=== PATIENT | female | born 1945 | race Caucasian/White ===

== ENCOUNTER → 2019-03-25 | Outpatient (CLI) | payer MEDICARE ==
--- NOTE | 2019-03-25 13:03 | US ---
EXAMINATION TYPE: US venous doppler duplex LE RT DATE OF EXAM: 03/25/2019 8:04 AM COMPARISON: NONE CLINICAL HISTORY: R60.0 Edema. Right ankle swelling and redness since change of blood pressure medica tion per patient. SIDE PERFORMED: Right TECHNIQUE: The lower extremity deep venous system is examined utilizing real time linear array sonog meryl with graded compression, doppler sonography and color-flow sonography. VESSELS IMAGED: Common Femoral Vein Deep Femoral Vein Greater Saphenous Vein * Femoral Vein Popliteal Vein Small Saphenous Vein * Proximal Calf Veins (* superficial vessels) Right Leg: Negative for DVT IMPRESSION: No evidence for DVT.
== END | disposition home or self-care (01) ==
LOC: RADUSWWP 08:02
PROVIDERS: ATTEND Internal Medicine
DX: R60.0 Localized edema (principal)

== ENCOUNTER → 2020-04-23 | Outpatient (CLI) | payer MEDICARE ==
--- NOTE | 2020-04-23 10:58 | US ---
EXAMINATION TYPE: US kidneys/renal and bladder DATE OF EXAM: 04/23/2020 COMPARISON: NONE CLINICAL HISTORY: N20.0 Calculus of kidney. Elevated creatinine, history of kidney stones. EXAM MEASUREMENTS: Right Kidney: 12.9 x 5.6 x 4.9 cm Left Kidney: 13.1 x 5.6 x 4.4 cm Right Kidney: multiple cysts with largest measuring 1.9 x 1.8 x 1.9cm inferior pole Left Kidney: 6.7 x 5.9 x 6.4cm cyst superior pole Bladder: wnl Bilateral Jets seen: no IMPRESSION: 1. Bilateral renal simple appearing cysts with no hydronephrosis or nephrolithiasis.
== END | disposition home or self-care (01) ==
LOC: RADUSWWP 09:56
PROVIDERS: ATTEND Internal Medicine
DX: N28.1 Cyst of kidney, acquired (principal)
CPT/HCPCS: 76770

== ENCOUNTER → 2021-03-16 | Outpatient (CLI) | payer MEDICARE ==
--- NOTE | 2021-03-17 09:28 | P.ARTDOP ---
Arterial Doppler LOWER EXTREMITY ARTERIAL DOPPLER: DATE OF SERVICE: 03/16/2021 Reason for study: Left hip pain with exercise. Doppler waveforms: Atypical throughout on the right. Atypical left femoral and popliteal and dorsalis pedis. Posterior tibial and digital are monophasic. Pulse volume recording: []. Pressure gradients: Mild gradient above the low thigh on the right and significant gradient above the low thigh on the left.. Ankle-brachial indices: 0.71 on the right and 0.29 on the left. Toe brachial indices: 0.41 on the right, 0.18 on the left Impression: Moderate right iliofemoral disease. Severe left iliofemoral disease. Recommend vascular specialty consultation..
== END | disposition home or self-care (01) ==
LOC: RADUSWWP 06:53
PROVIDERS: ATTEND Internal Medicine
DX: I73.9 Peripheral vascular disease, unspecified (principal)
CPT/HCPCS: 93923

== ENCOUNTER → 2021-05-11 | Outpatient (CLI) | payer MEDICARE ==
[2021-05-11 14:04] LABS: Basophils # (A) 0.1 k/uL (0-0.2); Basophils % (A) 1 %; Eosinophils # (A) 0.3 k/uL (0-0.7); Eosinophils % (A) 2 %; HCT 49.7 % (34.0-46.0); HGB 16.5 gm/dL (11.4-16.0); Lymphocytes # (A) 3.7 k/uL (1.0-4.8); Lymphocytes % (A) 28 %; MCH 32.8 pg (25.0-35.0); MCHC 33.2 g/dL (31.0-37.0); MCV 98.7 fL (80.0-100.0); Mean Platelet Volume 7.5; Monocytes # (A) 0.9 k/uL (0-1.0); Monocytes % (A) 7 %; Neutrophils % (A) 61 %; Platelet Count 283 k/uL (150-450); RBC 5.03 m/uL (3.80-5.40); RDW 12.9 % (11.5-15.5); WBC 13.2 k/uL (3.8-10.6)
[2021-05-11 14:27] LABS: African American GFR (CKD) >90 (>60 ml/min/1.73 sqM); Anion Gap 6 mmol/L; Blood Urea Nitrogen 20 mg/dL (7-17); Carbon Dioxide 26 mmol/L (22-30); Chloride 109 mmol/L (98-107); Non-African American GFR(CKD) 89 (>60 ml/min/1.73 sqM); Potassium 4.9 mmol/L (3.5-5.1); Sodium 141 mmol/L (137-145)
== END | disposition home or self-care (01) ==
LOC: LABPAT 11:24
PROVIDERS: ATTEND Surgery
DX: Z01.812 Encounter for preprocedural laboratory examination (principal); I74.5 Embolism and thrombosis of iliac artery; I74.3 Embolism and thrombosis of arteries of the lower extremities
CPT/HCPCS: 36415; 80051; 82565; 84520; 85025

== ENCOUNTER 2021-05-14 08:23 | Day surgery (SDC) | payer MEDICARE ==
[2021-05-07 13:41] VITALS: BMI 29.2
[~2021-05-14 08:23] MED LIST: ALPRAZolam 0.25 MG TAB PO PRN; ALPRAZolam 0.5 MG TAB PO PRN; ASPIRIN 325 MG TAB PO PRN; HEPARIN SODIUM,PORCINE 10,000 UNIT in SODIUM CHLORIDE 0.9% 1,000 ML IRRIGATION PRN; HEPARIN SODIUM,PORCINE 2,500 UNIT in SODIUM CHLORIDE 0.9% 250 ML IRRIGATION PRN; SODIUM CHLORIDE 0.9% 1,000 ML in EMPTY BAG 1 BAG IV ONE; ZOLPIDEM 5 MG TAB PO PRN
[2021-05-14 08:50] LABS: Glucose,Whole Blood 151 mg/dL (75-99)
[2021-05-14 08:51] VITALS: TEMP 98.3
[2021-05-14 09:13] LABS: Basophils # (A) 0.1 k/uL (0-0.2); Basophils % (A) 1 %; Eosinophils # (A) 0.3 k/uL (0-0.7); Eosinophils % (A) 2 %; HCT 51.3 % (34.0-46.0); HGB 16.7 gm/dL (11.4-16.0); Lymphocytes # (A) 2.8 k/uL (1.0-4.8); Lymphocytes % (A) 21 %; MCH 32.1 pg (25.0-35.0); MCHC 32.6 g/dL (31.0-37.0); MCV 98.5 fL (80.0-100.0); Mean Platelet Volume 7.4; Monocytes # (A) 0.8 k/uL (0-1.0); Monocytes % (A) 6 %; Neutrophils % (A) 68 %; Platelet Count 350 k/uL (150-450); RDW 13.5 % (11.5-15.5); WBC 13.3 k/uL (3.8-10.6)
[2021-05-14 09:53] LABS: African American GFR (CKD) >90 (>60 ml/min/1.73 sqM); Anion Gap 10 mmol/L; Blood Urea Nitrogen 18 mg/dL (7-17); Calcium 9.5 mg/dL (8.4-10.2); Carbon Dioxide 24 mmol/L (22-30); Chloride 107 mmol/L (98-107); Glucose 170 mg/dL (74-99); Non-African American GFR(CKD) >90 (>60 ml/min/1.73 sqM); Potassium 3.9 mmol/L (3.5-5.1); Sodium 141 mmol/L (137-145)
[2021-05-14] MEDS ORDERED: IV FLUID CONTINUATION 1,000 ML IV ONE (10:30)
[2021-05-14] MEDS ORDERED: fentaNYL (PF) 50 MCG/ML 2 ML AMP IV ONE (10:38)
[2021-05-14] MEDS ORDERED: MIDAZOLAM 2 MG/2 ML VIAL IV ONE (10:38)
[2021-05-14] MEDS ORDERED: LIDOCAINE 1% INJ 10MG/ML (20 ML MDV) SQ ONE (10:41)
[2021-05-14] MEDS ORDERED: IOPAMIDOL-250 100ML BTL IV ONE (11:40)
--- NOTE | 2021-05-14 12:59 | IR ---
EXAMINATION TYPE: IR angio abdominal w runoff DATE OF EXAM: 05/14/2021 COMPARISON: NONE HISTORY: Fluoroscopy time. Fluoroscopy was provided to the referring clinician.
[2021-05-14 14:42] VITALS: RESP 16
[2021-05-14 15:45] VITALS: BP 149/62; PULSE 62
--- NOTE | 2021-05-14 17:49 | P.OP ---
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 EBL: [Less than 5 mL] IV fluids: [See records] Urine output: [Not measured] Drains: [None] Complications: [None immediately apparent] Condition: [Stable to recovery] Operative indication and findings: [Patient is a 75-year-old female who presented to the office with left lower extremity pain with ambulation after a few feet. She was found have abnormal ABIs with a right of 0.7 and a left of 0.29. She was offered a catheter directed angiogram. Risks and benefits were discussed. She seemingly understood and was willing to proceed as such] Procedure in detail: [The patient was taken to the operative suite and placed in supine position. Bilateral groins were prepped and draped in usual sterile fashion. A preprocedure timeout was performed, all parties are in agreement. The ultrasound was utilized and the right common femoral artery was identified. The skin overlying was anesthetized with 1% lidocaine plain. Under ultrasound guidance the artery was cannulated and using Seldinger technique, a 5-Citizen [place] sheath was placed. A right iliofemoral angiogram was performed. Catheters and wires were utilized access the abdominal aorta appeared to pigtail catheter was placed. An aortogram with bilateral lower extremity runoffs was performed. Attempts were made in the Up & Over fashion to access the channel of the iliac artery was unsuccessful therefore ultrasound was utilized and the left common femoral artery was identified. The skin overlying was anesthetized and then accessed. Using Seldinger technique a 5-Citizen [place] sheath was also placed. A left iliofemoral angiogram was performed. Multiple attempts using different catheters and wires were utilized to cross the lesion of the common iliac art renee. At some point there was a dissection plane created which did enter up into the abdominal aorta. There was luminal gain however it did not appear to be in the level of the iliac vessel therefore no ballooning or stenting was performed due to the risk of occlusion of the right lower extremity. Therefore that time catheters and wires were removed. A final right iliofemoral angiogram was agai n obtained revealing adequate flow without any evidence of occlusion. The sheath removed and pressure was held until hemostasis was adequate. The patient was sent to recovery in stable condition having tolerated the procedure well. Angiographic findings: The aorta appeared petite in caliber with some distal aortoiliac occlusive disease. The vision was portions of the celiac, superior mesenteric and renal arteries are patent without evidence of disease. Again the distal aorta is small in caliber. The right common, internal and external iliac arteries are patent without significant disease however the vessels are very small. The common, deep and superficial femoral arteries are patent without significant disease. The popliteal artery appears patent without significant disease. The anterior tibial artery is very diminutive and has some degree of diffuse calcific disease. The peroneal and posterior tibial arteries appear patent to the ankle and through the foot. On the left, what appears to be the common iliac artery occludes shortly after its takeoff, there is reconstitution of the external iliac artery at the bifurcation of the internal iliac artery. Both of which appear small in caliber but without significant disease. There is visualization of diminutive common femoral, superficial femoral and deep femoral arteries. There is sluggish flow but no obvious significant calcific disease. The popliteal artery appears patent as visualized. There is difficult visualization of the tibial vessels however the anterior tibial, tibial peroneal trunk and peroneal artery appear patent. Difficult to visualize posterior tibial likely the anterior tibial and peroneal are patent at the ankle but again difficult to visualize due to poor inflow Plan - Discharge Summary Discharge Rx Participant: No New Discharge Prescriptions: No Action cloNIDine HCL [Catapres] 0.1 mg PO BID Glimepiride [Amaryl] 1 mg PO AC-BRKFST Fenofibrate 160 mg PO DAILY ALPRAZolam [Xanax] 0.5 mg PO BID PRN PRN Reason: Anxiety amLODIPine BESYLATE/BENAZEPRIL [amLODIPine BESYLATE/BENAZEPRIL 10-40 MG] 1 cap PO DAILY Aspirin 81 mg PO DAILY Atenolol [Tenormin] 100 mg PO DAILY Discharge Medication List ALPRAZolam [Xanax] 0.5 mg PO BID PRN 05/07/21 [History] Aspirin 81 mg PO DAILY 05/07/21 [History] Atenolol [Tenormin] 100 mg PO DAILY 05/07/21 [History] Fenofibrate 160 mg PO DAILY 05/07/21 [History] Glimepiride [Amaryl] 1 mg PO AC-BRKFST 05/07/21 [History] amLODIPine BESYLATE/BENAZEPRIL [amLODIPine BESYLATE/BENAZEPRIL 10-40 MG] 1 cap PO DAILY 05/07/21 [History] cloNIDine HCL [Catapres] 0.1 mg PO BID 05/07/21 [History] Follow up Appointment(s)/Referral(s): Amparo Herrera DO [STAFF PHYSICIAN] - 1 Week (OFFICE CLOSED PLEASE CALL TO MAKE YOUR APPOINTMENT ) Patient Instructions/Handouts: How to Stop Smoking (DC), Peripheral Artery Disease (DC), Procedural Sedation (ED), Type 2 Diabetes Management for Adults (DC) Activity/Diet/Wound Care/Special Instructions: flatx6 hours. may shower tomorrow, resume home meds as previously ordered. resume home diet. light activity for 1 week *no lifting, pushing, or pulling anything over 10 pounds for 5 days *no driving for 3 days *you can shower tomorrow but do not submerse your puncture site in water for a few days to prevent infection - so no tub baths, pools, hot tubs, dishes.....etc *any signs of bleeding (hardness, swelling, or excessive bruising) hold direct pressure on your puncture site and come to the nearest emergency room to get your puncture site looked at - do not drive yourself! either call ems or have someone drive you!
== END 2021-05-14 18:13 | disposition home or self-care (01) ==
LOC: CATHCVL 08:23 → 6NMEDSUR 14:20 → CATHCVL 18:13
PROVIDERS: ATTEND Surgery
DX: E11.51 Type 2 diabetes mellitus with diabetic peripheral angiopathy without gangrene (principal); E11.69 Type 2 diabetes mellitus with other specified complication; Z79.84 Long term (current) use of oral hypoglycemic drugs; Z79.82 Long term (current) use of aspirin
CPT/HCPCS: 36200; 75625; 75716; 80048; 85025; C1769 ×5; C1894; C1887; J2250; J2001; J3010; Q9966

== ENCOUNTER → 2021-06-09 | Outpatient (CLI) | payer MEDICARE ==
--- NOTE | 2021-06-10 17:01 | ECHOF ---
Referral Reason:I11.9 MEASUREMENTS -------- HEIGHT: 162.6 cm WEIGHT: 77.1 kg BP: RVIDd: 2.8 cm (< 3.3) IVSd: 1.0 cm (0.6 - 1.1) LVIDd: 4.4 cm (3.9 - 5.3) LVPWd: 0.8 cm (0.6 - 1.1) IVSs: 1.7 cm LVIDs: 2.0 cm LVPWs: 1.6 cm LAESV Index (A-L): 18.82 ml/m Ao Diam: 2.8 cm (2.0 - 3.7) AV Cusp: 1.5 cm (1.5 - 2.6) LA Diam: 3.3 cm (2.7 - 3.8) MV EXCURSION: 12.495 mm (> 18.000) MV EF SLOPE: 60 mm/s (70 - 150) EPSS: 1.2 cm MV E Vinicius: 1.23 m/s MV DecT: 198 ms MV A Vinicius: 0.81 m/s MV E/A Ratio: 1.51 RAP: 5.00 mmHg RVSP: 8.46 mmHg FINDINGS -------- This was a technically adequate study. The left ventricular size is normal. Left ventricular wall thickness is normal. Overall left vent ricular systolic function is normal with, an EF between 55 - 60 %. The diastolic filling pattern is normal for the age of the patient 16.85. The right ventricle is normal in size. The left atrial size is normal. Normal LA size by volume 22+/-6 ml/m2. The right atrial size is normal. Interatrial and interventricular septum intact. The aortic valve is trileaflet and appears structurally normal. The mitral valve is normal. There is trace mitral regurgitation. The tricuspid valve appears structurally normal. Trace tricuspid regurgitation present. Right nina tricular systolic pressure is normal at < 35 mmHg. There is no pulmonic regurgitation present. The aortic root size is normal. Normal inferior vena cava with normal inspiratory collapse consistent with estimated right atrial pre ssure of 5 mmHg. There is no pericardial effusion. CONCLUSIONS -------- 1. The left ventricular size is normal. 2. Left ventricular wall thickness is normal. 3. Overall left ventricular systolic function is normal with, an EF between 55 - 60 %. 4. The diastolic filling pattern is normal for the age of the patient 16.85 5. There is trace mitral regurgitation. 6. Trace tricuspid regurgitation present. 7. There is no pericardial effusion. ROOF TECHNICIAN: Gloria Pinzon RDCS
== END | disposition home or self-care (01) ==
LOC: RADECHMAIN 14:50
PROVIDERS: ATTEND Internal Medicine
DX: I08.1 Rheumatic disorders of both mitral and tricuspid valves (principal)
CPT/HCPCS: 93306

== ENCOUNTER 2021-06-29 07:56 | Inpatient (IN) | payer MEDICARE ==
[2021-06-25 13:54] VITALS: BMI 27.9
[~2021-06-29 07:56] MED LIST changes: -ALPRAZolam 0.25 MG TAB PO PRN; -ALPRAZolam 0.5 MG TAB PO PRN; -ASPIRIN 325 MG TAB PO PRN; +DEXAMETHASONE SOD PHOSPHATE 4 MG/ML 1 ML VIAL IV ONE; -HEPARIN SODIUM,PORCINE 10,000 UNIT in SODIUM CHLORIDE 0.9% 1,000 ML IRRIGATION PRN; -HEPARIN SODIUM,PORCINE 2,500 UNIT in SODIUM CHLORIDE 0.9% 250 ML IRRIGATION PRN; +LACTATED RINGERS 1,000 ML IV SCH; +LIDOCAINE 1% (10MG/ML) FOR IV START INTRADERMA PRN; +ONDANSETRON 4 MG/2 ML VIAL IVP ONE; -ZOLPIDEM 5 MG TAB PO PRN
[2021-06-29] MEDS ORDERED: SODIUM CHLORIDE 0.9% 1,000 ML IV ONE ×2 (08:12→18:01)
[2021-06-29 08:24] LABS: Glucose,Whole Blood 141 mg/dL (75-99)
[2021-06-29 08:36] LABS: Basophils # (A) 0.1 k/uL (0-0.2); Basophils % (A) 1 %; Eosinophils # (A) 0.3 k/uL (0-0.7); Eosinophils % (A) 2 %; HCT 49.9 % (34.0-46.0); HGB 15.9 gm/dL (11.4-16.0); Lymphocytes # (A) 2.5 k/uL (1.0-4.8); Lymphocytes % (A) 21 %; MCH 31.1 pg (25.0-35.0); MCHC 31.9 g/dL (31.0-37.0); MCV 97.5 fL (80.0-100.0); Mean Platelet Volume 7.3; Monocytes # (A) 0.7 k/uL (0-1.0); Monocytes % (A) 6 %; Neutrophils # (A) 8.2 k/uL (1.3-7.7); Neutrophils % (A) 69 %; Platelet Count 308 k/uL (150-450); RBC 5.12 m/uL (3.80-5.40); RDW 13.4 % (11.5-15.5); WBC 11.9 k/uL (3.8-10.6)
[2021-06-29 08:49] LABS: African American GFR (CKD) >90 (>60 ml/min/1.73 sqM); Anion Gap 8 mmol/L; Blood Urea Nitrogen 18 mg/dL (7-17); Calcium 9.4 mg/dL (8.4-10.2); Carbon Dioxide 23 mmol/L (22-30); Chloride 108 mmol/L (98-107); Glucose 161 mg/dL (74-99); Non-African American GFR(CKD) >90 (>60 ml/min/1.73 sqM); Potassium 4.1 mmol/L (3.5-5.1); Sodium 139 mmol/L (137-145)
[2021-06-29] MEDS ORDERED: NITROGLYCERIN-D5W PMX 50 MG/250 ML BOTTLE IV ONE (10:45)
[2021-06-29] MEDS ORDERED: HEPARIN SODIUM,PORCINE 10,000 UNIT/ML 1 ML VIAL ONE (10:45)
[2021-06-29] MEDS ORDERED: ceFAZolin 1,000 MG VIAL ONE (10:45)
[2021-06-29] MEDS ORDERED: NEOSTIGMINE 1 MG/ML 10 ML VIAL ONE (10:45)
[2021-06-29] MEDS ORDERED: PROTAMINE SULFATE 10 MG/ML 5 ML VIAL IV ONE (10:45)
[2021-06-29] MEDS ORDERED: ROCURONIUM 10 MG/ML (5 ML VIAL) IV ONE (10:45)
[2021-06-29] MEDS ORDERED: ePHEDrine 50 MG/ML 1 ML AMP ONE (10:45)
[2021-06-29] MEDS ORDERED: ALBUTEROL HFA INHALER INHALATION ONE (10:45)
[2021-06-29] MEDS ORDERED: LIDOCAINE 1% INJ 10MG/ML (20 ML MDV) ONE (10:45)
[2021-06-29] MEDS ORDERED: SODIUM CHLORIDE 0.9% 100 ML BAG ONE (10:45)
[2021-06-29] MEDS ORDERED: fentaNYL (PF) 50 MCG/ML 2 ML AMP ONE (10:45)
[2021-06-29] MEDS ORDERED: SUCCINYLCHOLINE CHLORIDE 100 MG/5 ML SYR IV ONE (10:45)
[2021-06-29] MEDS ORDERED: GLYCOPYRROLATE 0.2 MG/ML 2 ML VIAL ONE (10:45)
[2021-06-29] MEDS ORDERED: PROPOFOL 10 MG/ML 20 ML VIAL IV ONE (10:45)
[2021-06-29] MEDS ORDERED: KETAMINE 10 MG/ML 20 ML VIAL ONE (10:45)
[2021-06-29] MEDS ORDERED: LIDOCAINE 1% INJ 10MG/ML (20 ML MDV) SQ ONE ×2 (11:25→11:31)
[2021-06-29] MEDS ORDERED: IOPAMIDOL-250 100ML BTL INTRAARTER ONE (12:26)
[2021-06-29] MEDS ORDERED: IOPAMIDOL-370 100ML BTL INJ ONE (18:00)
[2021-06-29] MEDS ORDERED: ONDANSETRON 4 MG/2 ML VIAL IVP ONE (18:41)
[2021-06-29] MEDS: HYDROmorphone 0.5 MG/0.5 ML SYRINGE IVP PRN ×2 (18:41→18:47)
[2021-06-29 18:55] LABS: Glucose,Whole Blood 126 mg/dL (75-99)
[2021-06-29] MEDS ORDERED: diphenhydrAMINE 50 MG/ML 1 ML VIAL ONE (19:02)
[2021-06-29] MEDS ORDERED: diphenhydrAMINE 50 MG/ML 1 ML VIAL IVP ONE (19:04)
--- NOTE | 2021-06-29 19:26 | P.OP ---
Date of Procedure: 06/29/21 Description of Procedure: Preoperative diagnosis: [Left iliac occlusion] Postoperative diagnosis: Same Procedure: [ #1 ultrasound guided left common femoral artery access #2 left iliofemoral angiogram #3 ultrasound-guided left brachial artery access #4 abdominal aortogram #5 percutaneous transluminal balloon angioplasty left common iliac artery, 6 x 60 balloon #6 percutaneous transluminal balloon expandable stent placement, 8 x 57 noncovered #7 percutaneous transluminal self expanding stent placement, 7 x 100 noncovered #8 left femoral cutdown #9 left femoral endarterectomy with patch angioplasty #10 transluminal self expanding covered stent, Viabahn 7 x 50] Surgeon: Amparo Herrera D.O. Hook And Eye Machine Operator: Jordy moore D.O. EBL: [200 mL] Anesthesia: Gen. endotracheal IV fluids: [See records see records] Urine output: [See records] Drains: [None] Complications: [None immediately apparent] Condition: [Stable to recovery] Operative indication and findings: [The patient is a 75-year-old female who previously was found to have a left iliac artery occlusion. Attempts were made to cross at that time were unsuccessful. She comes back today for repeat intervention. Risks and benefits were discussed.] Procedure in detail: [The patient was taken to the [facility] and placed in supine position. The abdomen and groins as well as left arm were prepped and draped in usual sterile fashion. General anesthesia was induced. A preprocedure timeout was performed, all parties were in agreement. Using the ultrasound the left common femoral artery was identified. The skin overlying was anesthetized. Using a micropuncture needle the artery was accessed and Seldinger technique was used to place a 5-[place] sheath. A left iliofemoral angiogram was performed showing continued occlusion with areas of previous dissection of the proximal external iliac artery. Attention was then turned towards the brachial artery. The artery was identified under ultrasound and using a micropuncture and Seldinger technique a 45 slender sheath was placed. Catheters and wires were used to access the aorta and an angiogram was performed. The aorta is patent. The superior mesenteric and bilateral renal arteries without significant disease through the accessory renal on the right. There is diffuse disease throughout the aorta itself. That point a long 5-[place] sheath was placed into the distal aorta. Catheters and wires were used from both ends to cross the lesion which was ultimately successful via the proximal side. Long wires were used and the wire was snared via the left groin from the brachial artery and brought out through the sheath. Was then replaced for a 7-[place] sheath in the left groin. A quick cross catheter was placed over the wire and confirmed intraluminal space in the aorta. The wire was removed. Percutaneous transluminal balloon angioplasty of the left common iliac performed with a 6 x 60 balloon repeat imaging showed continued area of dissection across the occlusion. It was decided to place a stent therefore an 8 x 57 noncovered balloon expandable stent was placed in the common iliac artery. There was still a dissection flap noted distally therefore was extended after proper ballooning with a 7 x 100 self expanding stent. There was still some obvious diffuse disease throughout the external iliac and common femoral artery. At that point it was thought to be due to the 7-[place] sheath being occlusive in the groin.. The sheath was withdrawn slightly and there was improvement of the picture therefore a vascular closure device was used and the groin was fully closed. Repeat imaging from the proximal brachial catheter that was now in the external iliac showed brisk flow through the iliac system with an area of occlusion. There was some flow through the profunda however common femoral artery appeared to have significant disease still therefore the decision was made to cut down. There was likely a significant dissection still at the distal external iliac artery that was flow- limiting. Prior to the cutdown, a wire was passed into the superficial femoral artery from the brachial sheath and confirmed in position with a hand injection via a quick cross catheter and that point attention was turned towards the common femoral cutdown. A vertical incision was made and carried down through the subcutaneous tissues to the level of the common femoral artery. It was dissected free from its surrounding areas the identified area of the previous percutaneous access was noted. The common femoral, deep and superficial femoral arteries were encircled with Silastic vessel loops. Throughout the case ACT had been measured and followed he the patient therapeutic heparinization. An arteriotomy was created and a Braman was used to excise the significant plaquing in the common femoral artery and an elongated down to the superficial femoral artery. A patch was placed and anastomosis created with 6-0 Prolene. Prior to completion of the anastomosis a multipurpose needle was punctured through the patch itself and the previously placed wire was taken out through this. Also the distal endpoint of the superficial femoral artery was tacked in place with 6-0 Prolene. The anastomosis then completed. Flow was allowed to resume through the femoral vessels. A 7-[place] sheath was then placed through the patch and angiograms were performed. A 7 x 50 Biobond stent was placed from the external iliac into the distal portion where the previously placed patch was, with care not to cross the joint. This stent was deployed just at the level of the inguinal ligament. A repeat imaging was performed revealing brisk flow through the iliac system without evidence of dissection. The superficial femoral and profunda arteries appeared patent. That point attention was turned towards closure. Hemostasis was achieved with interrupted sutures of 6-0 Prol lion and thrombin and Gelfoam. The femoral sheath was reapproximated with running 2-0 Vicryl. The deep dermal tissues and subcuticular tissues were approximated with 3-0 Vicryl. The skin was reapproximated with running 4-0 Vicryl. A per vena wound VAC was placed. The brachial sheath was removed and manual pressure was held. Hemostasis appeared adequate. The patient was transferred to recovery after extubation in stable condition having tolerated the procedure well.]
[2021-06-29] MEDS ORDERED: HYDROcodone/APAP 5-325MG 1 EACH TAB PO PRN (19:30)
[2021-06-29] MEDS ORDERED: MORPHINE SULFATE 2 MG/ML SYRINGE IVP PRN (19:30)
[2021-06-30 06:33] LABS: African American GFR (CKD) >90 (>60 ml/min/1.73 sqM); Non-African American GFR(CKD) >90 (>60 ml/min/1.73 sqM)
[2021-06-30] MEDS ORDERED: ALPRAZolam 0.5 MG TAB PO PRN (08:22)
[2021-06-30] MEDS ORDERED: GLIMEPIRIDE 1 MG TAB PO SCH (08:30)
[2021-06-30] MEDS ORDERED: CLOPIDOGREL 75 MG TAB PO SCH (09:00)
[2021-06-30] MEDS ORDERED: amLODIPine 10 MG TAB PO SCH (09:00)
[2021-06-30] MEDS ORDERED: lisinopriL 20 MG TAB PO SCH (09:00)
[2021-06-30] MEDS ORDERED: ASPIRIN 81 MG PO SCH (09:00)
[2021-06-30] MEDS ORDERED: atenoloL 50 MG TAB PO SCH (09:00)
[2021-06-30] MEDS ORDERED: cloNIDine HCL 0.1 MG TAB PO SCH (09:00)
[2021-06-30 11:27] LABS: HCT 43.1 % (34.0-46.0); HGB 13.6 gm/dL (11.4-16.0); MCH 31.4 pg (25.0-35.0); MCHC 31.6 g/dL (31.0-37.0); MCV 99.5 fL (80.0-100.0); Mean Platelet Volume 7.5; Platelet Count 253 k/uL (150-450); RBC 4.33 m/uL (3.80-5.40); RDW 13.2 % (11.5-15.5); WBC 17.3 k/uL (3.8-10.6)
--- NOTE | 2021-06-30 11:35 | P.DS ---
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 She presented for outpatient left iliac artery occlusion and is postop day #1 for abdominal aortogram with percutaneous transluminal balloon angioplasty of the left common iliac artery with stent placement with a left femoral cutdown, left femoral endarterectomy with patch angioplasty and stent. The patient is in the ICU. No acute changes through the night. Vital signs have been stable. Herrera catheter in place which will be discontinued. Patient with Prevena wound VAC dressing intact to the left groin. Left brachial access site with dressing that is clean dry and intact. Patient has no complaints of pain. She denies any abdominal pain, shortness of breath, chest pain, nausea, vomiting. She's been afebrile. She is up to the recliner. She has an incentive spirometer at the bedside. Physical exam: General appearance: The patient is alert, oriented, appears in no acute distress. HET: Head is normocephalic and atraumatic. Neck: Supple without lymphadenopathy. Trachea midline. Heart: S1 S2. Regular rate and rhythm. Lungs: Clear to auscultation. Abdomen: Soft, nontender, nondistended. Extremities: Normal skin color and turgor. No cyanosis, rash, ulceration, clubbing, or edema. Left brachial acess site with dressing clean dry and intact. No swelling or bruising. Radial Pulses +2 bilaterally. Left groin with Prevena dressing in place. Palpable dorsalis pedis pulse. Neurological: No focal deficits. Strength and sensation are grossly intact. Resume home medications. Discontinue Herrera catheter. Discontinue A-line. Once patient is able to void and is up ambulating she may be discharged home. She will follow-up with Dr. Herrera in one week. Further discharge instructions and discharge plan. The impression and plan of care has been dictated as directed. I performed a history and examination of this patient, discussed the same with the dictator. I agree with the dictator's note ,documented as a scribe. Any additional findings or plans will be noted. Patient Condition at Discharge: Good Plan - Discharge Summary Discharge Rx Participant: No New Discharge Prescriptions: New Clopidogrel [Plavix] 75 mg PO DAILY #30 tab Continue cloNIDine HCL [Catapres] 0.1 mg PO BID Glimepiride [Amaryl] 2 mg PO AC-BRKFST ALPRAZolam [Xanax] 0.25 mg PO BID PRN PRN Reason: Anxiety amLODIPine BESYLATE/BENAZEPRIL [amLODIPine BESYLATE/BENAZEPRIL 10-40 MG] 1 cap PO DAILY Aspirin 81 mg PO DAILY Atenolol [Tenormin] 100 mg PO DAILY Discharge Medication List ALPRAZolam [Xanax] 0.25 mg PO BID PRN 05/07/21 [History] Aspirin 81 mg PO DAILY 05/07/21 [History] Atenolol [Tenormin] 100 mg PO DAILY 05/07/21 [History] Glimepiride [Amaryl] 2 mg PO AC-BRKFST 05/07/21 [History] amLODIPine BESYLATE/BENAZEPRIL [amLODIPine BESYLATE/BENAZEPRIL 10-40 MG] 1 cap PO DAILY 05/07/21 [History] cloNIDine HCL [Catapres] 0.1 mg PO BID 05/07/21 [History] Clopidogrel [Plavix] 75 mg PO DAILY #30 tab 06/30/21 [Rx] Follow up Appointment(s)/Referral(s): Amparo Herrera DO [STAFF PHYSICIAN] - 1 Week Activity/Diet/Wound Care/Special Instructions: No heavy lifting or strenuous activity greater than 5-10 pounds. Keep Prevena dressing in place to left groin 1 week. May remove left upper extremity dressing tomorrow. No tub bathing, sponge bath until dressing removed. Discharge Disposition: HOME SELF-CARE
[2021-06-30 12:09] VITALS: BP 144/60; RESP 16; TEMP 97.6
[2021-06-30 13:13] VITALS: PULSE 70
--- NOTE | 2021-06-30 15:21 | IR ---
Fluoroscopy HISTORY: Peripheral vascular occlusive disease 51.1 minutes fluoroscopy time supplied to the referring clinician. 142 intraoperative C-arm images d ocument the procedure. See dictated report from vascular surgery.
== END 2021-06-30 13:24 | disposition home or self-care (01) | DRG 254 ==
LOC: 2ORMAIN 07:56 → 2SICU 18:38
PROVIDERS: ADMIT Surgery; ATTEND Surgery
PROC: B41G1ZZ Fluoroscopy of Left Lower Extremity Arteries using Low Osmolar Contrast (ICD-10-PCS; 2021-06-29)
PROC: B4101ZZ Fluoroscopy of Abdominal Aorta using Low Osmolar Contrast (ICD-10-PCS; 2021-06-29)
PROC: 047D3EZ Dilation of Left Common Iliac Artery with Two Intraluminal Devices, Percutaneous Approach (ICD-10-PCS; principal; 2021-06-29 09:30)
PROC: 04CL0ZZ Extirpation of Matter from Left Femoral Artery, Open Approach (ICD-10-PCS; 2021-06-29 09:30)
PROC: 04UL0JZ Supplement Left Femoral Artery with Synthetic Substitute, Open Approach (ICD-10-PCS; 2021-06-29 09:30)
DX: I74.5 Embolism and thrombosis of iliac artery (principal); E11.51 Type 2 diabetes mellitus with diabetic peripheral angiopathy without gangrene; I10 Essential (primary) hypertension; I70.0 Atherosclerosis of aorta; Z20.822 Contact with and (suspected) exposure to COVID-19
CPT/HCPCS: 37221; 37223; 80048; 82565; 85025; 85027; 86850; 86900; 86901; 87635; 88304; 88305; 88311

== ENCOUNTER → 2021-11-02 | Outpatient (CLI) | payer MEDICARE ==
--- NOTE | 2021-11-02 08:39 | US ---
EXAMINATION TYPE: US venous doppler duplex LE LT DATE OF EXAM: 11/02/2021 8:22 AM COMPARISON: NONE CLINICAL HISTORY: I73.9 PERIPHERAL VASCULAR DISEASE. edema SIDE PERFORMED: Left TECHNIQUE: The lower extremity deep venous system is examined utilizing real time linear array sonog meryl with graded compression, doppler sonography and color-flow sonography. VESSELS IMAGED: Common Femoral Vein Deep Femoral Vein Greater Saphenous Vein * Femoral Vein Popliteal Vein Small Saphenous Vein * Proximal Calf Veins (* superficial vessels) Left Leg: Negative for DVT Grayscale, color doppler, spectral doppler imaging performed of the deep veins of the left lower extr emity. There is normal flow, compressibility, vascular waveforms. IMPRESSION: No ultrasound evidence for acute DVT in the left lower extremity.
== END | disposition home or self-care (01) ==
LOC: RADUSWWP 08:03
PROVIDERS: ATTEND Internal Medicine
DX: I73.9 Peripheral vascular disease, unspecified (principal)